=== PATIENT | female | born 1990 | race Caucasian/White ===

== ENCOUNTER → 2022-07-13 09:14 | Outpatient (CLI) | payer OTHER, SELFPAY ==
--- NOTE | ~2022-07-13 | XR_ITS ---
EXAMINATION: XR abdomen/kub 1V DATE: 07/13/2022 09:28 INDICATION: Kidney stones. TECHNIQUE: A supine view of the abdomen on 2 radiographs was obtained. COMPARISON: None. FINDINGS: There are no dilated loops of bowel. The kidneys are obscured by bowel. There is a 5 mm mi cification in left pelvis, likely phlebolith. There is a 2 mm calcification in right pelvis. IMPRESSION: 1. 2 mm calcification in right pelvis that may be a phlebolith or distal right ureteral stone. Reviewed, dictated and finalized at location A.
--- NOTE | ~2022-07-13 | US_ITS ---
Renal-Bladder ultrasound Clinical History: Renal stones Technique: Real-time sonographic imaging of the kidneys and urinary bladder was performed. Findings: The right kidney measures 10.5 cm in length and the left kidney measures 10.5 cm. There is no hydronephrosis or renal calculus identified. Renal cortical echogenicity is within normal limits. No renal mass lesion is identified. The urinary bladder is moderately distended at the time of this exam. No intraluminal echoes are iden tified. No abnormal wall thickening is seen. Impression: Unremarkable ultrasound of the kidneys and urinary bladder. Reviewed, dictated and finalized at location . Impression: Unremarkable ultrasound of the kidneys and urinary bladder.
== END ==
PROVIDERS: PCP Urology; Visit Provider Urology
DX: N20.0 Calculus of kidney (principal)
CPT/HCPCS: 74018; 76775